=== PATIENT | male | born 1960 | race Caucasian/White ===

== ENCOUNTER 2016-09-05 06:50 | Day surgery (SDC) | payer MEDICAID, OTHER ==
[2016-09-05] MEDS ORDERED: LR 1,000 ML IV ONE (07:41)
[2016-09-05] MEDS ORDERED: LIDOCAINE 1% 2 ML INJ ID PRN (07:41)
--- NOTE | 2016-09-05 08:15 | PDGENHP ---
History & Physical Chief Complaint: Positive cologard test History of Present Illness: Here for a diagnostic colonoscopy Relevant Physical Exam: GEN: NAD. Cardiac: RRR. Lungs: CTA B. Abd: Soft, nt, nd
--- NOTE | 2016-09-05 08:52 | PDANEPAE ---
ANE Past Medical History - Cardiovascular History Hx Hypertension: Yes Hx Arrhythmias: No Hx Chest Pain: No Hx Coronary Artery / Peripheral Vascular Disease: No Hx CHF / Valvular Disease: No Hx Palpitations: No Cardiovascular History Comment: monitors BP at home-stable - Pulmonary History Hx COPD: No Hx Asthma/Reactive Airway Disease: No Hx Recent Upper Respiratory Infection: No Hx Oxygen in Use at Home: No Hx Sleep Apnea: No Sleep Apnea Screening Result - Last Documented: Negative Pulmonary History Comment: many environmental allergies- use Qvar inhaler - Neurologic History Hx Cerebrovascular Accident: No Hx Seizures: No Hx Dementia: No - Endocrine History Hx Diabetes: No Hypothyroid: No Hyperthyroid: No Obesity: no Endocrine History Comment: hx of "high calcium" hyperparathyroidism- 2011 excised 1 gland. - Renal History Hx Renal Disorders: No - Liver History Hx Hepatic Disorders: No - Neurological & Psychiatric Hx Hx Neurological and Psychiatric Disorders: Yes Neurological / Psychiatric History Comment: degeneration of discs, stenosis- stable. - Cancer History Hx Cancer: No - Congenital Disorder History Hx Congenital Disorders: No - GI History Hx Gastrointestinal Disorders: Yes Gastrointestinal History Comment: cologuard POS. Hx of 3 polyps - Chronic Pain History Chronic Pain: No - Surgical History Prior Surgeries: scope x3 knees. L ankle "rebuilt". elbow sx. parathyroid excision ANE Review of Systems - Exercise capacity METS (RN): 5 METS ANE Patient History - Allergies Allergies/Adverse Reactions: Sulfa (Sulfonamide Antibiotics) Allergy (Verified 08/14/16 10:14) Rash - Home Medications Home Medications: Albuterol 08/31/14 [Last Taken 09/03/16] Lisinopril 08/31/14 [Last Taken 09/05/16 05:00] Qvar 80 (RX) 08/31/14 [Last Taken Unknown] ZYRTEC 08/14/16 [Last Taken Unknown] - NPO status NPO Since - Liquids (Date): 09/04/16 NPO Since - Liquids (Time): 23:00 NPO Since - Solids (Date): 09/04/16 NPO Since - Solids (Time): 20:00 - Smoking Hx Smoking Status: Never smoked ANE Labs/Vital Signs - Vital Signs Blood Pressure: 139/95 Heart Rate: 57 Respiratory Rate: 16 O2 Sat (%): 98 Height: 182.88 cm Weight: 71.668 kg ANE Physical Exam - Airway Neck exam: FROM Mallampati Score: Class 1 Mouth exam: normal dental/mouth exam - Pulmonary Pulmonary: no respiratory distress - Cardiovascular Cardiovascular: regular rate and rhythym - ASA Status ASA Status: II ANE Anesthesia Plan Anesthesia Plan: GA with mask
[2016-09-05] MEDS ORDERED: PROPOFOL/EMULSION 500 MG/50 ML BOTTLE IV ONE (08:58)
[2016-09-05] MEDS ORDERED: LIDOCAINE 2% 5 ML SDV ONE (08:58)
--- NOTE | 2016-09-05 09:22 | POSTOPPROG ---
Post Op Note Date of Operation: 09/05/16 Surgeon: Shay Simmons Pre-op Diagnosis: + Cologard Post-op Diagnosis: Small colon polyps x 2 Indication: + Cologard Procedure: Colonoscopy with bx Inf/Abcess present in the surg proc area at time of surgery?: No Complications: None
[2016-09-05] MEDS ORDERED: LABETALOL HCL 50 MG/10 ML SYR IVP PRN (09:28)
[2016-09-05] MEDS ORDERED: NALOXONE HCL 0.4 MG/ML INJ IVP PRN (09:28)
[2016-09-05] MEDS ORDERED: fentaNYL 100 MCG/2 ML INJ IVP PRN (09:28)
[2016-09-05] MEDS ORDERED: LR 500 ML IV PRN (09:28)
[2016-09-05] MEDS ORDERED: ONDANSETRON 4 MG/2 ML VIAL IVP PRN (09:28)
--- NOTE | 2016-09-05 09:29 | POSTANESTH ---
Post Anesthetic Evaluation Cardiovascular Status: Normal, Stable Respiratory Status: Normal, Stable Level of Consciousness/Mental Status: Can Participate in Eval Pain Control: Adequate, Prn Tx Ordered Nausea/Vomiting Control: Adequate, Prn Tx Ordered Complications Possibly Related to Anesthesia: None Noted
[2016-09-05 09:44] VITALS: TEMP 97.9
[2016-09-05 10:37] VITALS: BP 135/92; RESP 16
[2016-09-05 11:33] VITALS: PULSE 71; O2SAT 98
--- NOTE | 2016-09-05 18:51 | GPN ---
[f rep st] PROCEDURE NOTE DATE OF PROCEDURE: 09/05/2016 PREPROCEDURE DIAGNOSIS: Positive Cologuard test. POSTPROCEDURE DIAGNOSIS: Small colon polyp, status post removal. PROCEDURE: Colonoscopy with biopsies. MEDICATIONS: Monitored anesthesia care. INDICATIONS: This patient is a 56-year-old gentleman who had a colonoscopy 4 years ago, which showe d colon polyps and he was told to come back in 3 years. The decision was made to perform a Cologuar d test, which was positive. He is here for colonoscopy secondary to a positive Cologuard test. The risks and benefits of the procedure were discussed with the patient and consent obtained. Risks include, but are not limited to, bleeding, perforation, risks associated with sedation. The patien t is ASA class 2. PROCEDURE IN DETAIL: The adult colonoscope was advanced into the terminal ileum, which appeared nor mal. The IC valve, appendiceal orifice, cecum, ascending colon, hepatic flexure, transverse colon, splenic flexure, descending colon, and sigmoid colon were normal. The rectosigmoid junction shows 2 small colon polyps measuring 1-2 mm in size, which were removed us ing cold biopsy forceps and sent to Pathology. The rectum was normal. Retroflexed views in the rectum are normal. IMPRESSION: Two small colon polyps status post removal. RECOMMENDATIONS: 1. Discharge to home with escort. 2. Advance diet as tolerated. 3. Follow up the final biopsy results. Results available within 10 days. 4. Repeat colonoscopy in 5 years given his history of polyps. Thank you for allowing me to participate in the care of your patient. Please do not hesitate to thiago hopkins with questions. /[id number]/MODL
== END 2016-09-05 11:20 | disposition home or self-care (01) ==
LOC: FSGY 06:50
PROVIDERS: ATTEND Internal Medicine Gastroenterology
PROC: 0DBN8ZX Excision of Sigmoid Colon, Via Natural or Artificial Opening Endoscopic, Diagnostic (ICD-10-PCS; principal; 2016-09-05 08:30)
DX: K63.5 Polyp of colon (principal)
CPT/HCPCS: J2704

== ENCOUNTER → 2017-05-17 | Outpatient (CLI) | payer MEDICAID | LOC: FIMAGING 14:29 | PROVIDERS: ATTEND Family Medicine Sports Medicine | DX: M43.17 Spondylolisthesis, lumbosacral region (principal); M47.896 Other spondylosis, lumbar region; M53.86 Other specified dorsopathies, lumbar region ==